=== PATIENT | male | born 1965 | race Asian ===

== ENCOUNTER 2018-02-20 19:45 | Emergency (ER) | payer OTHER ==
[~2018-02-20] VITALS: Ht 177.8 cm; Wt 86.6 kg
[2018-02-20 20:14] VITALS: Ht 177.8 cm; Wt 86.6 kg
[2018-02-20 21:46] VITALS: BP 136/95
== END 2018-02-20 21:46 | disposition home or self-care (01) ==
LOC: ED 19:45
DX: R07.81 Pleurodynia (principal); I10 Essential (primary) hypertension; W22.8XXA Striking against or struck by other objects, initial encounter; Y93.89 Activity, other specified; Y92.89 Other specified places as the place of occurrence of the external cause; Y99.8 Other external cause status
CPT/HCPCS: J1885